=== PATIENT | female | born 1960 | race Two or more races ===

== ENCOUNTER 2020-10-27 11:34 | Outpatient (CLI) | payer OTHER ==
[2020-11-01] MEDS ORDERED: ATORVASTATIN CA20 MG PO (12:30)
[2020-11-01] MEDS ORDERED: VITAMIN D PO (12:34)
== END 2020-10-27 11:42 | disposition home or self-care (01) ==
LOC: LAB 11:34
PROVIDERS: ATTEND Orthopaedic Surgery
DX: I10 Essential (primary) hypertension (principal); D64.89 Other specified anemias; E88.89 Other specified metabolic disorders; D68.8 Other specified coagulation defects; N39.0 Urinary tract infection, site not specified; Z22.322 Carrier or suspected carrier of Methicillin resistant Staphylococcus aureus; Z76.89 Persons encountering health services in other specified circumstances; I49.8 Other specified cardiac arrhythmias

== ENCOUNTER 2020-11-07 06:00 | Day surgery (SDC) | payer OTHER ==
[~2020-11-07 06:00] MED LIST: ATORVASTATIN CA20 MG PO; VITAMIN D PO
== END 2020-11-07 14:15 | disposition home or self-care (01) ==
LOC: CIR.AMB 06:00
PROVIDERS: ATTEND Orthopaedic Surgery
DX: M23.321 Other meniscus derangements, posterior horn of medial meniscus, right knee (principal); M23.351 Other meniscus derangements, posterior horn of lateral meniscus, right knee; M12.261 Villonodular synovitis (pigmented), right knee; M22.41 Chondromalacia patellae, right knee; Z20.822 Contact with and (suspected) exposure to COVID-19

== ENCOUNTER 2025-07-07 06:00 | Day surgery (SDC) | payer OTHER ==
[2025-06-30 09:58] LABS: URINE APPEARANCE Clear; URINE BILIRRUBIN Negative (NEGATIVE); URINE BLOOD Small; URINE COLOR Yellow; URINE GLUCOSE Negative (NEGATIVE); URINE KETONE Negative (NEGATIVE); URINE LEUKOCYTE Large; URINE NITRATE Negative; URINE PROTEIN Negative (NEGATIVE); URINE UROBILINOGEN 0.2 E.U./dl
[2025-06-30 10:03] LABS: URINE BACTERIA 224.3 uL (0.0-1933); URINE EPITHELIAL CELLS 37.2 uL (0.0-38.8); URINE RBC 5.5 uL (0.0-20.8); URINE WBC 213.6 uL (0.0-23.2)
[2025-06-30 10:09] LABS: URINE CAST 0.00 uL (0.0-1.40)
[2025-06-30 10:12] LABS: BASO % 0.3 % (0.1-1.2); EOS # 0.11 (0.04-0.54); EOS % 1.4 % (0.7-7.0); LYMPH # 2.34 (1.18-3.74); LYMPH % 30.7 % (19.3-53.1); MEAN PLATELET VOLUME 11.60 fl (9.4-12.4); MONO # 0.50 (0.24-0.82); MONO % 6.6 % (4.7-12.5); NEUT # 4.62 (1.56-6.13); NEUT % 60.6 % (34.0-71.1); RED CELL DISTRIBUTION WIDTH 13.4 % (11.6-14.4)
[2025-06-30 10:46] LABS: INR 0.98
[2025-06-30 10:51] LABS: ALT/SGPT 29.0 U/L (12-78); AST/SGOT 17.0 U/L (15-37); BILIRUBIN TOTAL 0.55 mg/dL (0.3-1.2); BUN CREA RATIO 25.0 (7.0-25.0); CREATININE SERUM 0.57 mg/dL (0.55-1.02); GFR 105.79; GLOBULINA 3.9 G/DL (2.4-3.5); GLUCOSE FASTING 82.0 mg/dL (65-100); OSMOLALITY SERUM 285.0 MOSM/KG (275-295)
[2025-07-07] MEDS ORDERED: CEFAZOLIN SODIUM 1,000 MG VIAL ONE (07:56)
[2025-07-07] MEDS ORDERED: POVIDONE-IODINE 118 ML BOTT TOP ONE (08:43)
[2025-07-07] MEDS ORDERED: DOXYCYCLINE HY100 M2 PO (09:53)
[2025-07-07] MEDS ORDERED: IBU600 MG PO (09:54)
== END 2025-07-07 13:55 | disposition home or self-care (01) ==
LOC: CIR.AMB 06:00
PROVIDERS: ATTEND Obstetrics & Gynecology
DX: D25.0 Submucous leiomyoma of uterus (principal); N84.0 Polyp of corpus uteri